=== PATIENT | male | born 1985 | race Caucasian/White ===

== ENCOUNTER 2018-06-28 12:39 | Emergency (ER) | payer OTHER, SELFPAY ==
[~2018-06-28] VITALS: Ht 175.3 cm; Wt 90.1 kg
[2018-06-28] MEDS ORDERED: IBUP-1114 PO (13:22)
[2018-06-28 14:09] LABS: BILIRUBIN, URINE MANUAL NEGATIVE (NEGATIVE); GLUCOSE, URINE (UA) MANUAL NEGATIVE (NEGATIVE); KETONE, URINE MANUAL NEGATIVE (NEGATIVE); UROBILINOGEN, URINE MANUAL NORMAL (NORMAL)
[2018-06-28 14:18] LABS: AMORPHOUS SEDIMENT, URINE LARGE AMOUNT (NEGATIVE); BACTERIA, URINE NONE SEEN; HYALINE CAST, URINE NONE SEEN /lpf (0-1); MUCUS, URINE MOD AMOUNT (NEGATIVE); SQUAMOUS EPITHELIAL CELL URINE NONE SEEN /hpf (SMALL AMT)
[2018-06-28] MEDS ORDERED: KETOROLAC 30 MG/ML VIAL (J1885) IV ONE (15:30)
[2018-06-28] MEDS ORDERED: NS 1,000 ML IV SCH (15:30)
[2018-06-28 16:11] LABS: BASO % 0.3 % (0.0-1.0); EOS % 0.2 % (0.0-3.0); HEMATOCRIT 42.1 % (42.0-52.0); HEMOGLOBIN 14.5 g/dl (13.5-17.5); LYMPH # 3.1 10^3/uL (1.5-4.5); LYMPH % 24.6 % (24.0-44.0); MEAN CORPUSCULAR HEMOGLOBIN 31.7 pg (27.0-33.0); MEAN CORPUSCULAR HGB CONC 34.4 g/dl (32.0-36.5); MEAN CORPUSCULAR VOLUME 92.1 fl (80.0-96.0); NEUTROPHILS # 8.3 10^3/uL (1.8-7.7); NEUTROPHILS % 66.6 % (36.0-66.0); PLATELET COUNT, AUTOMATED 241 10^3/uL (150-450); RED BLOOD COUNT 4.57 10^6/uL (4.30-6.10); WHITE BLOOD COUNT 12.4 10^3/uL (4.0-10.0)
[2018-06-28 16:30] LABS: CALCIUM LEVEL 9.5 MG/DL (8.5-10.1); CREATININE FOR GFR 1.56 MG/DL (0.70-1.30); GLOMERULAR FILTRATION RATE 55.5 (>60); POTASSIUM SERUM 4.5 MEQ/L (3.5-5.1)
--- NOTE | 2018-06-28 17:24 | REP ---
CT ABDOMEN AND PELVIS WITHOUT CONTRAST: CT abdomen and pelvis was performed without oral or IV contrast. Sagittal and coronal reconstruction images are performed. Visualized lung bases are clear. The liver, spleen, adrenals, and pancreas are grossly unremarkable. The left kidney is grossly unremarkable with no hydronephrosis or nephrolithiasis. There is a 3 mm stone in the mid right renal collecting system. There is mild right hydroureteronephrosis caused by a 3 mm stone in the distal right ureter. The urinary bladder demonstrate no intraluminal calculus. There is no abdominal aortic aneurysm. There is no adenopathy. There is no free air or free fluid. There is no bowel wall thickening. There is no evidence of appendicitis. Two small right inguinal hernia containing fat. IMPRESSION: There is a 3 mm calculus in the distal right ureter causing mild right hydroureteronephrosis. There is a 3 mm calculus in the mid right renal collecting system. A small right inguinal hernia contains fat. Electronically Signed by Denzel Walton MD 06/29/2018 03:18 P
[2018-06-28] MEDS ORDERED: FLOM0.4C39 PO (17:41)
[2018-06-28] MEDS ORDERED: PERC5TAB12 PO (17:41)
[2018-06-28 18:46] VITALS: BP 135/80
== END 2018-06-28 18:55 | disposition home or self-care (01) ==
LOC: M ED 12:39
DX: N21.1 Calculus in urethra (principal); K40.90 Unilateral inguinal hernia, without obstruction or gangrene, not specified as recurrent; Z72.0 Tobacco use; Z88.8 Allergy status to other drugs, medicaments and biological substances
CPT/HCPCS: 74176; 80048; 81000; 85025; 87086; 96361; 96374; 99284; J1885

== ENCOUNTER → 2020-04-02 | Outpatient (CLI) | payer SELFPAY ==
[~2020-04-02] MED LIST: FLOM0.4C39 PO; IBUP-1114 PO; PERC5TAB12 PO
== END ==
LOC: M LABSMTC 09:46
PROVIDERS: ATTEND Pediatrics
DX: Z20.822 Contact with and (suspected) exposure to COVID-19 (principal)